=== PATIENT | female | born 1945 | race Caucasian/White ===

== ENCOUNTER 2021-07-19 14:52 | Inpatient (IN) | payer MEDICARE ==
[~2021-07-19] VITALS: Ht 160 cm; Wt 82.4 kg
--- NOTE | 2021-07-19 15:21 | PHYS DOC ---
General Adult EDM: Chief Complaint: MEDICAL CLEARANCE HPI: HPI: Patient is a 76-year-old female who presents to the emergency department for medical clearance for admission to [facility] at [facility] hospital. Patient's family member at bedside reports they have already performed intake. Patient is not combative or has any behavioral issues. They report a history of dementia, anxiety and depression. Patient has no complaints at this time. She denies chest pain shortness of breath. (JUDSON MANZO APRN) Review of Systems: Review of Systems: Constitutional: Denies fever or chills Eyes: Denies change in visual acuity HENT: Denies nasal congestion or sore throat Respiratory: Denies cough or shortness of breath Cardiovascular: Denies chest pain or edema GI: Denies abdominal pain, nausea, vomiting, bloody stools or diarrhea : Denies dysuria Musculoskeletal: Denies back pain or joint pain Integument: Denies rash Neurologic: Denies headache, focal weakness or sensory changes Endocrine: Denies polyuria or polydipsia Lymphatic: Denies swollen glands Psychiatric: See HPI (JUDSON MANZO APRN) Physical Exam: PE: Constitutional: Well developed, well nourished, no acute distress, non-toxic appearance. [] HENT: Normocephalic, atraumatic, bilateral external ears normal, oropharynx moist, no oral exudates, nose normal. [] Eyes: PERRL,4mm bilaterally, no horizontal nystagmus, EOMI, conjunctiva normal, no discharge. [] Neck: Normal range of motion, no stridor Cardiovascular:Heart rate regular rhythm, no murmur [] Lungs & Thorax: Bilateral breath sounds clear to auscultation [] Abdomen: Bowel sounds normal, soft, no tenderness, no masses, no pulsatile masses. [] Skin: Warm, dry, no erythema, no rash. [] Back: No tenderness, normal ROM Extremities: No tenderness, no cyanosis, no clubbing, ROM intact, no edema. [] Neurologic: Alert and oriented X 3, normal motor function, normal sensory function, no focal deficits noted. [] Psychologic: Affect normal, judgement normal, mood normal. [] (JUDSON MANZO APRN) Current Patient Data: Labs: Laboratory Tests Test 07/19/21 15:34 07/19/21 16:00 07/19/21 16:50 White Blood Count 5.6 x10^3/uL Red Blood Count 3.93 x10^6/uL Hemoglobin 12.8 g/dL Hematocrit 37.4 % Mean Corpuscular Volume 95 fL Mean Corpuscular Hemoglobin 33 pg Mean Corpuscular Hemoglobin Concent 34 g/dL Red Cell Distribution Width 13.5 % Platelet Count 284 x10^3/uL Neutrophils (%) (Auto) 63 % Lymphocytes (%) (Auto) 27 % Monocytes (%) (Auto) 8 % Eosinophils (%) (Auto) 2 % Basophils (%) (Auto) 1 % Neutrophils # (Auto) 3.5 x10^3uL Lymphocytes # (Auto) 1.5 x10^3/uL Monocytes # (Auto) 0.4 x10^3/uL Eosinophils # (Auto) 0.1 x10^3/uL Basophils # (Auto) 0.1 x10^3/uL Sodium Level 135 mmol/L Potassium Level 3.5 mmol/L Chloride Level 99 mmol/L Carbon Dioxide Level 28 mmol/L Anion Gap 8 Blood Urea Nitrogen 8 mg/dL Creatinine 0.8 mg/dL Estimated GFR (Cockcroft-Gault) 69.4 BUN/Creatinine Ratio 10 Glucose Level 397 mg/dL Calcium Level 9.0 mg/dL Total Bilirubin 1.0 mg/dL Aspartate Amino Transf (AST/SGOT) 17 U/L Alanine Aminotransferase (ALT/SGPT) 23 U/L Alkaline Phosphatase 93 U/L Total Protein 6.5 g/dL Albumin 3.2 g/dL Albumin/Globulin Ratio 1.0 SARS-CoV-2 Antigen (Rapid) Negative Urine Collection Type Clean catch Urine Color Yellow Urine Clarity Clear Urine pH 6.5 Urine Specific [place] 1.010 Urine Protein Trace Urine Glucose (UA) >=1000 mg/dL Urine Ketones (Stick) Neg mg/dL Urine Blood Trace Urine Nitrite Neg Urine Bilirubin Neg Urine Urobilinogen Dipstick 0.2 mg/dL Urine Leukocyte Esterase Neg Urine RBC Occ /HPF Urine WBC 0 /HPF Urine Squamous Epithelial Cells Occ /LPF Urine Bacteria 0 /HPF (JUDSON MANZO APRN) EKG: EKG: [] (JUDSON MANZO APRN) Radiology/Procedures: Radiology/Procedures: [] (JUDSON MANZO APRN) Heart Score: C/O Chest Pain: No Risk Factors: Risk Factors: DM, Current or recent (<one month) smoker, HTN, HLP, family history of CAD, obesity. Risk Scores: Score 0 - 3: 2.5% MACE over next 6 weeks - Discharge Home Score 4 - 6: 20.3% MACE over next 6 weeks - Admit for Clinical Observation Score 7 - 10: 72.7% MACE over next 6 weeks - Early Invasive Strategies (JUDSON MANZO APRN) Course & Med Decision Making: Course & Med Decision Making Pertinent Labs and Imaging studies reviewed. (See chart for details) Patient presents to the emergency department for medical clearance for admission to [facility] unit. Work-up in the ER consisted of blood work, COVID testing and urinalysis. Patient's work-up in the ER is unremarkable. Patient is medically cleared at this time 1743. Patient to be admitted to [facility]. (JUDSON MANZO APRN) Dragon Disclaimer: Dragon Disclaimer: This electronic medical record was generated, in whole or in part, using a voice recognition dictation system. (JUDSON MANZO APRN) Attending Co-Sign The patient was seen and interviewed as well as examined at the bedside. The chart was reviewed. The case was discussed. Agree with the plan of care. (RUI RODRIGUEZ DO) Departure Departure: Impression: Primary Impression: Medical clearance for psychiatric admission Disposition: HOME / SELF CARE / HOMELESS Condition: STABLE JUDSON MANZO APRN July 19, 2021 15:21 RUI RODRIGUEZ DO July 20, 2021 07:29
[2021-07-19 15:56] LABS: BASO # 0.1 x10^3/uL (0.0-0.2); BASO % 1 % (0-3); EOS # 0.1 x10^3/uL (0.0-0.7); EOS % 2 % (0-3); HEMATOCRIT 37.4 % (36.0-47.0); HEMOGLOBIN 12.8 g/dL (12.0-15.5); LYMPH # 1.5 x10^3/uL (1.0-4.8); LYMPH % 27 % (24-48); MEAN CORPUSCULAR HEMOGLOBIN 33 pg (25-35); MEAN CORPUSCULAR HGB CONC 34 g/dL (31-37); MEAN CORPUSCULAR VOLUME 95 fL (79-100); MONO # 0.4 x10^3/uL (0.0-1.1); MONO % 8 % (0-9); NEUT # 3.5 x10^3uL (1.8-7.7); NEUT % 63 % (31-73); PLATELET COUNT 284 x10^3/uL (140-400); RED BLOOD COUNT 3.93 x10^6/uL (3.50-5.40); RED CELL DISTRIBUTION WIDTH 13.5 % (11.5-14.5); WHITE BLOOD COUNT 5.6 x10^3/uL (4.0-11.0)
[2021-07-19 16:08] LABS: CREATININE 0.8 mg/dL (0.6-1.0); GFR 69.4; POTASSIUM 3.5 mmol/L (3.5-5.1)
[2021-07-19 16:14] LABS: ALBUMIN 3.2 g/dL (3.4-5.0); TOTAL PROTEIN 6.5 g/dL (6.4-8.2)
[2021-07-19 17:28] LABS: CLARITY,URINE CLEAR; COLOR,URINE YELLOW; GLUCOSE,URINE >=1000 mg/dL (NEG)
[2021-07-19 17:29] LABS: BACTERIA,URINE 0 /HPF (0-FEW); NITRITE,URINE NEG (NEG); RBC,URINE OCC /HPF (0-2); SQUAMOUS EPITHELIAL CELL,UR OCC /LPF; UROBILINOGEN,URINE 0.2 mg/dL (0.2 mg/dL); WBC,URINE 0 /HPF (0-4)
[2021-07-19] MEDS ORDERED: metFORMIN 500 MG TABLET PO ONE (18:00)
[2021-07-19] MEDS ORDERED: CARV25TA PO (18:10)
[2021-07-19] MEDS ORDERED: AMLO-187 PO (18:10)
[2021-07-19] MEDS ORDERED: PRAV80TA2 PO (18:10)
[2021-07-19] MEDS ORDERED: ESCITALOPRAM OXA5 MG PO (18:10)
[2021-07-19] MEDS ORDERED: METF100010 PO (18:10)
[2021-07-19] MEDS ORDERED: ASPI-630 PO (18:10)
[2021-07-19] MEDS ORDERED: NITR0.4T22 SL (18:10)
[2021-07-19] MEDS ORDERED: LISI40TA6 PO (18:10)
[2021-07-19] MEDS ORDERED: LINA5TAB4 PO (18:10)
[2021-07-19] MEDS ORDERED: ACETAMINOPHEN 325 MG TABLET PO PRN (20:15)
[2021-07-19] MEDS ORDERED: MAGNESIUM HYDROXIDE 2,400 MG/30 ML ORAL.SUSP. PO PRN (20:15)
[2021-07-19] MEDS ORDERED: METHYL SALICYLATE/MENTHOL TOPICAL OINTMENT 57GM TUBE. TP PRN (20:15)
[2021-07-19 20:34] VITALS: BP 172/98
[2021-07-19] MEDS: traZODone 50 MG TABLET. PO PRN (21:55)
[2021-07-19] MEDS ORDERED: NITROGLYCERIN SUBLINGUAL 0.4 MG BOTTLE OF 25. SL PRN (22:30)
[2021-07-19] MEDS ORDERED: DEXTROSE 50% 25 GM / 50ML DISP.SYRIN. IV PRN (22:30)
[2021-07-20 06:17] VITALS: BP 130/59
[2021-07-20] MEDS ORDERED: CITALOPRAM 10 MG TABLET. PO SCH (09:00)
[2021-07-20] MEDS: ASPIRIN CHEWABLE 81 MG TABLET. PO SCH (09:13)
[2021-07-20] MEDS: LINAGLIPTIN 5 MG TABLET PO SCH (09:13)
[2021-07-20] MEDS: metFORMIN XR 500 MG TAB.ER.24H PO SCH (09:14)
[2021-07-20] MEDS: amLODIPine BESYLATE 10 MG TABLET PO SCH (09:14)
[2021-07-20] MEDS: CARVEDILOL 12.5 MG TABLET PO SCH ×2 (09:14→17:00)
[2021-07-20] MEDS: LISINOPRIL 20 MG TABLET PO SCH (09:15)
[2021-07-20] MEDS: ATORVASTATIN CALCIUM 20 MG TABLET PO SCH (09:15)
[2021-07-20 11:16] LABS: CHOLESTEROL/HDL RATIO 3.1; THYROID STIM HORMONE (TSH) 0.453 uIU/mL (0.358-3.740)
[2021-07-20 15:46] VITALS: BP 137/68
[2021-07-20] MEDS: PRAZOSIN 1 MG CAPSULE. PO SCH (20:39)
[2021-07-21 01:06] LABS: HEMOGLOBIN A1C 11.2 % (4.8-5.6)
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
--- NOTE | 2021-07-21 04:32 | CONS ---
ATTENDING PHYSICIAN: Dr. Chen. We are asked to see this patient for medical consultation. HISTORY OF PRESENT ILLNESS: The patient is a very pleasant, alert 76-year-old female who lives in assisted living situation in [facility]. We had a nice chat regarding our living situation. I told her that I live in [place] too and we had a fairly normal conversation. I do not believe she is demented. She is very alert. She had some issues regarding her making derogatory statements about her daughter. She has some memory impairment, but she knows that she is getting forgetful. She is anxious. She is not taking her meds. She is admitted here for further treatment and evaluation. PAST MEDICAL HISTORY: Significant for type 2 diabetes, essential hypertension, hyperlipidemia and some tachycardia. ALLERGIES: She has no known drug allergies. CURRENT SCHEDULED MEDICATIONS: Include amlodipine 10 mg daily, aspirin daily, Coreg 25 mg b.i.d., Lexapro, Tradjenta, lisinopril, metformin 1000 mg daily, pravastatin, nitroglycerin p.r.n. PAST SURGICAL HISTORY: Unclear. FAMILY HISTORY: Unremarkable. REVIEW OF SYSTEMS: Unremarkable for any chest pain, palpitation, COVID exposure, shortness of breath. She is very alert. She has no other complaints. PHYSICAL EXAMINATION: GENERAL: When I saw her, this is a very pleasant elderly female. INITIAL VITAL SIGNS: Showed a blood pressure of 130/59, pulse is 76 and regular, pulse is regular. She is afebrile. Oxygen saturation 97% on room air. HEENT: Head is without trauma. Pupils are reactive. Sclerae nonicteric. Oropharynx is clear. NECK: Supple, no bruits. LUNGS: Otherwise clear to auscultation. CARDIOVASCULAR: Showed regular heart tones. ABDOMEN: Soft. EXTREMITIES: Without edema. NEUROLOGIC FINDINGS: Focally intact. Speech is fluent. SKIN: Warm and dry. PERTINENT LABORATORY STUDIES: Admission hemoglobin was 12.8 g/dL with a white count of 5600. Electrolytes showed a sodium 135 mEq per liter, potassium 3.5 mEq creatinine 0.8 mg/dL. Nonfasting blood sugar 174 mg percent. Transaminases are all normal. Serology negative for coronavirus. ASSESSMENT: 1. This 76-year-old female has behavioral issues from her assisted living situation. She and I had a fairly normal conversation. She recognized she has some memory issues. I do not believe she has dementia. 2. Essential hypertension. 3. Type 2 diabetes. 4. Hyperlipidemia. RECOMMENDATIONS: 1. I have examined this patient and she is stable from a medical standpoint. 2. I have reviewed all her medications and they should be continued as ordered. 3. Thank you again for asking me to see this patient for medical consultation. We shall gladly follow along during her inpatient stay. RIGOBERTO DR: Tran TID: [id number] CC: JORGE CHEN MD
[2021-07-21 05:37] LABS: THYROXINE 6.9 ug/dL (4.5-12.0)
[2021-07-21 06:03] VITALS: BP 123/61
[2021-07-21] MEDS: CARVEDILOL 12.5 MG TABLET PO SCH ×2 (08:08→17:00)
[2021-07-21] MEDS: metFORMIN XR 500 MG TAB.ER.24H PO SCH (08:08)
[2021-07-21] MEDS: ATORVASTATIN CALCIUM 20 MG TABLET PO SCH (08:08)
[2021-07-21] MEDS: LINAGLIPTIN 5 MG TABLET PO SCH (08:09)
[2021-07-21] MEDS: amLODIPine BESYLATE 10 MG TABLET PO SCH (08:09)
[2021-07-21] MEDS: LISINOPRIL 20 MG TABLET PO SCH (08:09)
[2021-07-21] MEDS: ASPIRIN CHEWABLE 81 MG TABLET. PO SCH (08:09)
[2021-07-21] MEDS: CITALOPRAM 10 MG TABLET. PO SCH (08:15)
--- NOTE | 2021-07-21 09:42 | RAD ---
EXAMINATION: CT HEAD/BRAIN WO CLINICAL HISTORY: Mental status change. TECHNIQUE: Serial axial images without IV contrast were obtained from the vertex to the foramen magnu m. CT Dose Reduction Employed: One or more of the following individualized dose reduction techniques magaly e utilized for this examination: 1. Automated exposure control 2. Adjustment of the mA and/or kV ac cording to patient size 3. Use of iterative reconstruction technique. COMPARISON: None FINDINGS: Acute Change: No evidence of an acute infarct or other acute parenchymal process. Hemorrhage: No evidence of acute intracranial hemorrhage. Mass Lesion/Mass Effect: No evidence of intracranial mass or extraaxial fluid collection. No signific ant mass effect. Chronic Change: Scattered patchy foci of hypoattenuation in the supratentorial white matter, nonspeci fic but likely represents mild microvascular ischemia. Atherosclerotic calcification of the anterior and posterior circulation. Parenchyma: Mild to moderate generalized volume loss. Ventricles: Ventricular enlargement concordant with degree of parenchymal volume loss. Paranasal Sinuses and Skull Base: Visualized paranasal sinuses clear. Visualized skull base and soft tissues unremarkable. IMPRESSION: No evidence of acute intracranial abnormality. Nonspecific supratentorial white matter changes as described, likely related to chronic microvascular ischemia. Electronically signed by: Topher Main DO (07/21/2021 9:39 AM) [facility]
[2021-07-21 16:11] VITALS: BP 109/62
[2021-07-21] MEDS: PRAZOSIN 1 MG CAPSULE. PO SCH (21:02)
[2021-07-21] MEDS: LORazepam 0.5 MG TABLET PO PRN (21:02)
--- NOTE | 2021-07-22 00:27 | PN ---
DATE: 07/21/2021 SUBJECTIVE: The patient was seen today, met with the staff. Chart was reviewed and also covering for Dr. Santillan. The patient is pleasant, highly anxious, nervous, mainly concerned about her problems with her cognition. The patient did not have any falls since admission. OBSERVATION: VITAL SIGNS: Temperature 97.2, blood pressure 123/61, pulse 65, respirations 18, O2 sat 98%. GENERAL: Slept about 7 hours last night. The patient's appetite is normal. CURRENT MEDICATIONS: The patient on admission was on citalopram 20 mg daily, prazosin 1 mg at night, Lipitor 20 mg daily, lisinopril 40 mg daily, Tradjenta 5 mg daily, aspirin 81 mg daily, amlodipine 10 mg daily, metformin 2000 mg daily with breakfast, Coreg 25 mg twice a day with meals, nitroglycerin 0.4 p.r.n., trazodone 25 mg at bedtime p.r.n. The patient apparently was taking 10 mg of Celexa that was increased to 20 mg on admission. LABORATORY DATA: The patient's lab reviewed, all within normal range. The patient's hemoglobin A1c was 11.2, glucose 174, cholesterol 226, LDL 127, HDL 74. The patient's urinalysis within normal range. The patient also had a CT scan of head without contrast, impression was no evidence of acute intracranial abnormality, nonspecific supratentorial white matter changes as described, likely related to chronic microvascular ischemia. ASSESSMENT: 1. Major depression, single episode. 2. Posttraumatic stress disorder. 3. Cognitive disorder, mild to moderate. 4. Rule out neurocognitive disorder, mostly Alzheimer's with depression. 5. Anxiety disorder, unspecified. PLAN: To continue treatment. LENGTH OF STAY: 7-10 days. OSCAR JOHNSON: Alf TID: [id number]
[2021-07-22 06:17] VITALS: BP 137/63
[2021-07-22] MEDS: CITALOPRAM 10 MG TABLET. PO SCH (08:43)
[2021-07-22] MEDS: ATORVASTATIN CALCIUM 20 MG TABLET PO SCH (08:43)
[2021-07-22] MEDS: ASPIRIN CHEWABLE 81 MG TABLET. PO SCH (08:43)
[2021-07-22] MEDS: LINAGLIPTIN 5 MG TABLET PO SCH (08:43)
[2021-07-22] MEDS: amLODIPine BESYLATE 10 MG TABLET PO SCH (08:44)
[2021-07-22] MEDS: LISINOPRIL 20 MG TABLET PO SCH (08:44)
[2021-07-22] MEDS: metFORMIN XR 500 MG TAB.ER.24H PO SCH (08:45)
[2021-07-22] MEDS: CARVEDILOL 12.5 MG TABLET PO SCH ×2 (08:45→17:00)
[2021-07-22 16:09] VITALS: BP 120/53
[2021-07-22] MEDS: PRAZOSIN 1 MG CAPSULE. PO SCH (20:10)
[2021-07-22] MEDS: traZODone 50 MG TABLET. PO PRN (20:10)
[2021-07-23 06:13] VITALS: BP 131/53
--- NOTE | 2021-07-23 06:50 | PN ---
DATE: 07/22/2021 SUBJECTIVE: The patient was seen today, met with the staff, chart reviewed, and covering for Dr. Santillan. Staff reports she is alert, oriented, very anxious, complaining of chest pain. OBSERVATION: VITAL SIGNS: Temperature 98.3, blood pressure 120/53, pulse 76, respirations 20, O2 sat 97%. GENERAL: Slept about 7 hours last night. The patient's appetite is fair. CURRENT MEDICATIONS: Celexa 20 mg daily, prazosin 1 mg at night, Lipitor 20 mg daily, lisinopril 40 mg daily, trazodone 25 mg at night, also lorazepam 0.5 mg every 4 hours p.r.n. The patient is also on other medications for her medical issues. LABORATORY DATA: The patient's labs reviewed. Except for elevated blood sugar, most of the findings were normal. The patient's urinalysis was within normal limits. ASSESSMENT: 1. Major depression, single episode. 2. Posttraumatic stress disorder . 3. Cognitive disorder, mild to moderate. 4. Rule out neurocognitive disorder, most likely Alzheimer's with depression. 5. Anxiety disorder, unspecified. PLAN: To continue treatment. LENGTH OF STAY: 7-[address]: Alf TID: [id number]
[2021-07-23] MEDS: CARVEDILOL 12.5 MG TABLET PO SCH ×2 (08:00→17:26)
[2021-07-23] MEDS: LINAGLIPTIN 5 MG TABLET PO SCH (08:28)
[2021-07-23] MEDS: ATORVASTATIN CALCIUM 20 MG TABLET PO SCH (08:28)
[2021-07-23] MEDS: LISINOPRIL 20 MG TABLET PO SCH (08:28)
[2021-07-23] MEDS: metFORMIN XR 500 MG TAB.ER.24H PO SCH (08:29)
[2021-07-23] MEDS: CITALOPRAM 10 MG TABLET. PO SCH (08:29)
[2021-07-23] MEDS: ASPIRIN CHEWABLE 81 MG TABLET. PO SCH (08:29)
[2021-07-23] MEDS: amLODIPine BESYLATE 10 MG TABLET PO SCH (08:30)
[2021-07-23 16:01] VITALS: BP 110/63
[2021-07-23] MEDS: PRAZOSIN 1 MG CAPSULE. PO SCH (19:40)
[2021-07-24 06:13] VITALS: BP 132/70
[2021-07-24] MEDS: CITALOPRAM 10 MG TABLET. PO SCH (08:26)
[2021-07-24] MEDS: metFORMIN XR 500 MG TAB.ER.24H PO SCH (08:26)
[2021-07-24] MEDS: ASPIRIN CHEWABLE 81 MG TABLET. PO SCH (08:26)
[2021-07-24] MEDS: LINAGLIPTIN 5 MG TABLET PO SCH (08:27)
[2021-07-24] MEDS: CARVEDILOL 12.5 MG TABLET PO SCH ×2 (08:27→17:18)
[2021-07-24] MEDS: amLODIPine BESYLATE 10 MG TABLET PO SCH (08:27)
[2021-07-24] MEDS: LISINOPRIL 20 MG TABLET PO SCH (08:28)
[2021-07-24] MEDS: ATORVASTATIN CALCIUM 20 MG TABLET PO SCH (08:28)
--- NOTE | 2021-07-24 13:05 | PN ---
DATE: 07/23/2021 SUBJECTIVE: The patient was seen today, met with the staff. Chart was reviewed. I am covering for Dr. Santillan. Staff reports medication compliance, did not present any behavioral problems this morning. The patient also not having any medical issues at this time. OBSERVATION: VITAL SIGNS: Temperature 97.6, blood pressure 110/63, pulse 67, respirations 16, O2 sat 99%. GENERAL: Slept about 7 hours last night. LABORATORY DATA: The patient's lab reviewed. CURRENT MEDICATIONS: Lorazepam 0.5 mg q. 4 hours p.r.n., citalopram 20 mg daily, prazosin 1 mg at night, trazodone 25 mg at night p.r.n. Denies of any side effects to the medications. The patient still has some flashbacks and memories. The patient has difficulty talking about her problems. ASSESSMENT: 1. Major depression, single episode. 2. Posttraumatic stress disorder. 3. Cognitive disorder, mild to moderate. 4. Rule out neurocognitive disorder, most likely Alzheimer's with depression. 5. Anxiety disorder, unspecified. PLAN: To continue with treatment. LENGTH OF STAY: 7-10 days. CLIFFORD/LAUREANO DR: CLIFFORD/gina TID: [id number]
[2021-07-24 16:18] VITALS: BP 102/54
[2021-07-24] MEDS: PRAZOSIN 1 MG CAPSULE. PO SCH (21:00)
[2021-07-25 06:14] VITALS: BP 113/46
[2021-07-25] MEDS ORDERED: DIPHENOXYLATE/ATROPINE TABLET. PO PRN (06:30)
[2021-07-25] MEDS: LINAGLIPTIN 5 MG TABLET PO SCH (08:09)
[2021-07-25] MEDS: ASPIRIN CHEWABLE 81 MG TABLET. PO SCH (08:09)
[2021-07-25] MEDS: ATORVASTATIN CALCIUM 20 MG TABLET PO SCH (08:09)
[2021-07-25] MEDS: metFORMIN XR 500 MG TAB.ER.24H PO SCH (08:09)
[2021-07-25] MEDS: CITALOPRAM 10 MG TABLET. PO SCH (08:11)
[2021-07-25] MEDS: LISINOPRIL 20 MG TABLET PO SCH (08:29)
[2021-07-25] MEDS: CARVEDILOL 12.5 MG TABLET PO SCH ×2 (08:29→17:21)
[2021-07-25] MEDS: amLODIPine BESYLATE 10 MG TABLET PO SCH (08:30)
--- NOTE | 2021-07-25 10:11 | PN ---
DATE: 07/24/2021 SUBJECTIVE: The patient was seen today, met with the staff, chart reviewed, and covering for Dr. Santillan. Staff reports that she is able to ambulate without support, but has had recent falls. The patient also compliance with the medications, not presented with any major behavior problems. The patient also withdrawn, isolative, and also decreased psychomotor activity, not showing any emotional lability. OBSERVATION: VITAL SIGNS: Temperature 97.7, blood pressure 132/70, pulse 95, respirations 20, O2 sat 97%. GENERAL: Slept about 8 hours last night. The patient's appetite is fair. CURRENT MEDICATIONS: Include lorazepam 0.5 mg q. 4 hours p.r.n., citalopram 20 mg daily, prazosin 1 mg at night, trazodone 25 mg at night p.r.n. Denies of any side effects to medications. LABORATORY DATA: The patient's lab reviewed. ASSESSMENT: 1. Major depression, single episode. 2. Post-traumatic stress disorder. 3. Cognitive disorder, mild to moderate. 4. Rule out neurocognitive disorder, most likely Alzheimer's with depression. 5. Anxiety disorder, unspecified. PLAN: To continue treatment. LENGTH OF STAY: 7-10 days. CLIFFORD/ORION/EPIFANIO DR: CLIFFORD/gina TID: [id number]
[2021-07-25 16:31] VITALS: BP 163/79
[2021-07-25] MEDS: PRAZOSIN 1 MG CAPSULE. PO SCH (21:00)
--- NOTE | 2021-07-26 04:31 | PN ---
DATE: 07/25/2021 SUBJECTIVE: The patient was seen today, met with the staff. Chart was reviewed. I am covering for Dr. Santillan. The patient is upset being here. The patient also angry with her daughter for bringing her here and the patient wants to know whether she could go back home. The patient is not sure whether she will be staying with her daughter or not. The patient also having significant problems with short-term memory, some emotional lability and also mood swings. OBSERVATION: VITAL SIGNS: Temperature 98.7, blood pressure 163/79, pulse 66, respirations 16, O2 sat 98%. GENERAL: Slept about 6 hours last night. CURRENT MEDICATIONS: Lorazepam 0.5 mg q. 4 hours p.r.n., citalopram 20 mg daily, prazosin 1 mg at night, and trazodone 25 mg at night p.r.n. The patient denies of any side effects. LABORATORY DATA: The patient's lab reviewed. ASSESSMENT: 1. Major depression, single episode. 2. Posttraumatic stress disorder. 3. Cognitive disorder, mild to moderate. 4. Rule out neurocognitive disorder, most likely Alzheimer's with depression. 5. Anxiety disorder, unspecified. PLAN: To continue with the treatment. LENGTH OF STAY: Seven to eight days. NIKIA DR: Alf TID: [id number]
[2021-07-26] MEDS: MAG HYDROX/AL HYDROX/SIMETH 30 ML ORAL.SUSP PO PRN (05:26)
[2021-07-26 05:40] VITALS: BP 126/52
[2021-07-26 05:51] LABS: BASO # 0.1 x10^3/uL (0.0-0.2); BASO % 1 % (0-3); EOS # 0.1 x10^3/uL (0.0-0.7); EOS % 2 % (0-3); HEMATOCRIT 33.7 % (36.0-47.0); HEMOGLOBIN 11.5 g/dL (12.0-15.5); LYMPH # 1.7 x10^3/uL (1.0-4.8); LYMPH % 25 % (24-48); MEAN CORPUSCULAR HEMOGLOBIN 32 pg (25-35); MEAN CORPUSCULAR HGB CONC 34 g/dL (31-37); MEAN CORPUSCULAR VOLUME 95 fL (79-100); MONO # 0.8 x10^3/uL (0.0-1.1); MONO % 12 % (0-9); NEUT # 4.1 x10^3uL (1.8-7.7); NEUT % 61 % (31-73); PLATELET COUNT 243 x10^3/uL (140-400); RED BLOOD COUNT 3.56 x10^6/uL (3.50-5.40); WHITE BLOOD COUNT 6.8 x10^3/uL (4.0-11.0)
[2021-07-26 06:11] LABS: ALBUMIN 2.6 g/dL (3.4-5.0); ALBUMIN/GLOBULIN RATIO 0.8 (1.0-1.7); CALCIUM 8.5 mg/dL (8.5-10.1); CREATININE 0.8 mg/dL (0.6-1.0); GFR 69.4; POTASSIUM 4.3 mmol/L (3.5-5.1); TOTAL PROTEIN 5.7 g/dL (6.4-8.2)
[2021-07-26] MEDS: ATORVASTATIN CALCIUM 20 MG TABLET PO SCH (08:14)
[2021-07-26] MEDS: CITALOPRAM 10 MG TABLET. PO SCH (08:14)
[2021-07-26] MEDS: LINAGLIPTIN 5 MG TABLET PO SCH (08:14)
[2021-07-26] MEDS: metFORMIN XR 500 MG TAB.ER.24H PO SCH (08:14)
[2021-07-26] MEDS: amLODIPine BESYLATE 10 MG TABLET PO SCH (08:15)
[2021-07-26] MEDS: ASPIRIN CHEWABLE 81 MG TABLET. PO SCH (08:15)
[2021-07-26] MEDS: CARVEDILOL 12.5 MG TABLET PO SCH ×2 (08:15→17:09)
[2021-07-26] MEDS: LISINOPRIL 20 MG TABLET PO SCH (08:15)
[2021-07-26] MEDS: LORazepam 0.5 MG TABLET PO PRN (12:46)
[2021-07-26 15:31] VITALS: BP 121/76
[2021-07-26] MEDS: PRAZOSIN 1 MG CAPSULE. PO SCH (20:33)
--- NOTE | 2021-07-27 04:10 | PN ---
DATE: 07/26/2021 SUBJECTIVE: The patient was seen today, met with the staff. Chart was reviewed and covering for Dr. Santillan. The patient is calm, cooperative and withdrawn to her room. The patient also was angry yesterday because of being here and also angry towards her daughter because she brought her here not explaining why she is here. The patient apparently much calmer today. OBSERVATION: VITAL SIGNS: Temperature 98.0, blood pressure is 121/76, pulse 70, respirations 16, O2 sat 97%. GENERAL: The patient slept fairly well. CURRENT MEDICATIONS: Lorazepam 0.5 mg q. 4 hours p.r.n., citalopram 20 mg daily, prazosin 1 mg at night, and trazodone 25 mg at night p.r.n. She denies of any side effects to medications. LABORATORY DATA: The patient's lab reviewed. ASSESSMENT: 1. Major depressive disorder, single episode. 2. Posttraumatic stress disorder. 3. Cognitive disorder, mild to moderate. PLAN: To continue with the treatment. LENGTH OF STAY: Seven to eight days. MIL[address]RO DR: Alf TID: [id number]
[2021-07-27 05:45] VITALS: BP 115/59
[2021-07-27] MEDS: LISINOPRIL 20 MG TABLET PO SCH (08:03)
[2021-07-27] MEDS: CARVEDILOL 12.5 MG TABLET PO SCH ×2 (08:03→17:14)
[2021-07-27] MEDS: metFORMIN XR 500 MG TAB.ER.24H PO SCH (08:03)
[2021-07-27] MEDS: ATORVASTATIN CALCIUM 20 MG TABLET PO SCH (08:03)
[2021-07-27] MEDS: ASPIRIN CHEWABLE 81 MG TABLET. PO SCH (08:04)
[2021-07-27] MEDS: CITALOPRAM 10 MG TABLET. PO SCH (08:04)
[2021-07-27] MEDS: LINAGLIPTIN 5 MG TABLET PO SCH (08:04)
[2021-07-27] MEDS: amLODIPine BESYLATE 10 MG TABLET PO SCH (08:04)
[2021-07-27] MEDS: MAG HYDROX/AL HYDROX/SIMETH 30 ML ORAL.SUSP PO PRN (11:01)
[2021-07-27 16:06] VITALS: BP 118/64
[2021-07-27] MEDS: PRAZOSIN 1 MG CAPSULE. PO SCH (20:48)
--- NOTE | 2021-07-28 01:57 | PN ---
DATE: 07/27/2021 SUBJECTIVE: The patient was seen today, met with the staff. Chart was reviewed and covering for Dr. Santillan. Staff reports no major behavior problem except she is withdrawn to her room, but she is calm and cooperative. The patient now apparently having some mood swings and being upset for being in the hospital. OBSERVATION: VITAL SIGNS: Stable. GENERAL: The patient is able to sleep fairly well. Her appetite improved. CURRENT MEDICATIONS: Lorazepam 0.5 mg q. 4 hours p.r.n., citalopram 20 mg daily, prazosin 1 mg at night, and trazodone 25 mg at night p.r.n. ALLERGIES: She denies of having any side effects to medications. LABORATORY DATA: The patient's lab reviewed. ASSESSMENT: 1. Major depressive disorder, single episode. 2. Posttraumatic stress disorder. 3. Cognitive disorder, mild to moderate. PLAN: To continue with the treatment. LENGTH OF STAY: 7-[address]: Alf TID: [id number]
[2021-07-28 05:51] VITALS: BP 115/58
[2021-07-28] MEDS: ASPIRIN CHEWABLE 81 MG TABLET. PO SCH (07:44)
[2021-07-28] MEDS: CARVEDILOL 12.5 MG TABLET PO SCH ×2 (07:45→16:12)
[2021-07-28] MEDS: ATORVASTATIN CALCIUM 20 MG TABLET PO SCH (07:45)
[2021-07-28] MEDS: metFORMIN XR 500 MG TAB.ER.24H PO SCH (07:45)
[2021-07-28] MEDS: LISINOPRIL 20 MG TABLET PO SCH (07:46)
[2021-07-28] MEDS: LINAGLIPTIN 5 MG TABLET PO SCH (07:46)
[2021-07-28] MEDS: CITALOPRAM 10 MG TABLET. PO SCH (07:46)
[2021-07-28] MEDS: amLODIPine BESYLATE 10 MG TABLET PO SCH (07:46)
[2021-07-28 15:54] VITALS: BP 125/61
[2021-07-28] MEDS ORDERED: levoFLOXacin 500 MG TABLET PO SCH (18:00)
[2021-07-28] MEDS: PRAZOSIN 1 MG CAPSULE. PO SCH (20:35)
[2021-07-28] MEDS: traZODone 50 MG TABLET. PO PRN ×2 (20:35→23:15)
[2021-07-28] MEDS: LORazepam 0.5 MG TABLET PO PRN (23:15)
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
[2021-07-29 05:30] VITALS: BP 116/54
[2021-07-29 06:41] LABS: BASO # 0.1 x10^3/uL (0.0-0.2); BASO % 1 % (0-3); EOS # 0.3 x10^3/uL (0.0-0.7); EOS % 5 % (0-3); HEMATOCRIT 34.9 % (36.0-47.0); HEMOGLOBIN 12.1 g/dL (12.0-15.5); LYMPH # 1.8 x10^3/uL (1.0-4.8); LYMPH % 37 % (24-48); MEAN CORPUSCULAR HEMOGLOBIN 33 pg (25-35); MEAN CORPUSCULAR HGB CONC 35 g/dL (31-37); MEAN CORPUSCULAR VOLUME 95 fL (79-100); MONO # 0.5 x10^3/uL (0.0-1.1); MONO % 10 % (0-9); NEUT # 2.3 x10^3uL (1.8-7.7); NEUT % 47 % (31-73); PLATELET COUNT 263 x10^3/uL (140-400); RED BLOOD COUNT 3.69 x10^6/uL (3.50-5.40); RED CELL DISTRIBUTION WIDTH 13.2 % (11.5-14.5); WHITE BLOOD COUNT 4.8 x10^3/uL (4.0-11.0)
[2021-07-29 06:45] LABS: ALBUMIN 2.9 g/dL (3.4-5.0); ALBUMIN/GLOBULIN RATIO 0.9 (1.0-1.7); CALCIUM 9.2 mg/dL (8.5-10.1); CREATININE 0.8 mg/dL (0.6-1.0); GFR 69.4; POTASSIUM 4.2 mmol/L (3.5-5.1); TOTAL BILIRUBIN 0.8 mg/dL (0.2-1.0); TOTAL PROTEIN 6.2 g/dL (6.4-8.2)
[2021-07-29] MEDS: CARVEDILOL 12.5 MG TABLET PO SCH ×2 (08:32→17:20)
[2021-07-29] MEDS: LINAGLIPTIN 5 MG TABLET PO SCH (08:32)
[2021-07-29] MEDS: CITALOPRAM 10 MG TABLET. PO SCH (08:33)
[2021-07-29] MEDS: ATORVASTATIN CALCIUM 20 MG TABLET PO SCH (08:33)
[2021-07-29] MEDS: ASPIRIN CHEWABLE 81 MG TABLET. PO SCH (08:33)
[2021-07-29] MEDS: amLODIPine BESYLATE 10 MG TABLET PO SCH (08:33)
[2021-07-29] MEDS: metFORMIN XR 500 MG TAB.ER.24H PO SCH (08:34)
[2021-07-29] MEDS: LISINOPRIL 20 MG TABLET PO SCH (08:34)
[2021-07-29 16:09] VITALS: BP 128/72
[2021-07-29] MEDS: PRAZOSIN 1 MG CAPSULE. PO SCH (20:12)
[2021-07-29] MEDS: traZODone 50 MG TABLET. PO PRN (20:13)
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
[2021-07-30 05:33] VITALS: BP 129/58
[2021-07-30] MEDS: amLODIPine BESYLATE 10 MG TABLET PO SCH (07:19)
[2021-07-30] MEDS: LINAGLIPTIN 5 MG TABLET PO SCH (07:19)
[2021-07-30] MEDS: metFORMIN XR 500 MG TAB.ER.24H PO SCH (07:19)
[2021-07-30] MEDS: CITALOPRAM 10 MG TABLET. PO SCH (07:20)
[2021-07-30] MEDS: LISINOPRIL 20 MG TABLET PO SCH (07:20)
[2021-07-30] MEDS: CARVEDILOL 12.5 MG TABLET PO SCH ×2 (07:20→16:14)
[2021-07-30] MEDS: ATORVASTATIN CALCIUM 20 MG TABLET PO SCH (07:20)
[2021-07-30] MEDS: ASPIRIN CHEWABLE 81 MG TABLET. PO SCH (07:20)
[2021-07-30 16:03] VITALS: BP 112/66
[2021-07-30 21:00] VITALS: BP 115/54
[2021-07-30] MEDS: PRAZOSIN 1 MG CAPSULE. PO SCH (21:00)
== END 2021-07-31 | disposition home health service (06) | DRG 885 ==
LOC: ER 14:52 → GEROPSY 19:40
PROVIDERS: ADMIT Psychiatry & Neurology Psychiatry; ATTEND Psychiatry & Neurology Psychiatry
DX: F33.41 Major depressive disorder, recurrent, in partial remission (principal); Z20.822 Contact with and (suspected) exposure to COVID-19; F43.10 Post-traumatic stress disorder, unspecified; E11.9 Type 2 diabetes mellitus without complications; F41.9 Anxiety disorder, unspecified; G31.84 Mild cognitive impairment of uncertain or unknown etiology; F42.9 Obsessive-compulsive disorder, unspecified; E78.5 Hyperlipidemia, unspecified; I10 Essential (primary) hypertension; F63.9 Impulse disorder, unspecified; I44.7 Left bundle-branch block, unspecified; Z79.899 Other long term (current) drug therapy
CPT/HCPCS: 36415; 70450; 80053; 80061; 81001; 82140; 82306; 82947; 83036; 83540; 83550; 83735; 84436; 84443; 84480; 84484; 85025; 85379; 86592; 87426; 93005; U0003; 97110; 97116; 97530; 99285-25